=== PATIENT | female | born 1930 | race Caucasian/White ===

== ENCOUNTER 2016-04-29 18:07 | Inpatient (IN) ==
[2016-04-29] MEDS ORDERED: IOPAMIDOL 100 ML BOTTLE IJ ONE (18:08)
[2016-04-29] MEDS ORDERED: ONDANSETRON 4 MG/2 ML VIAL ONE (18:45)
[2016-04-29] MEDS ORDERED: ONDANSETRON 4 MG/2 ML VIAL IV ONE (18:50)
[2016-04-29] MEDS ORDERED: 0.9 % SODIUM CHLORIDE 1,000 ML IV ONE ×2 (18:50→20:50)
[2016-04-29] MEDS ORDERED: HYDROmorphone 2 MG/ML SYRINGE IV PRN (18:50)
--- NOTE | 2016-04-29 18:50 | Emergency Department Note ---
Abdominal Pain HPI - General Chief Complaint: Abdominal Pain Stated Complaint: indigestion, abd pain Time Seen by Provider: 04/29/16 18:47 Source: patient Mode of arrival: ambulatory Limitations: no limitations - History of Present Illness HPI Narrative: Patient started having abdominal pain today. 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 Perhaps less and at than usual. Bowel obstructions in the past. She has had nausea and vomiting MD Complaint: abdominal pain Onset (ago): hour(s) Consistency: constant Location: diffuse Severity: moderate Quality: cramping - Related Data Home Medications Medication Instructions Recorded Confirmed No Known Home Meds [No Known Home 04/29/16 04/29/16 Meds] Allergies Allergy/AdvReac Type Severity Reaction Status Date / Time No Known Drug Allergies Allergy Verified 04/29/16 18:13 Review of Systems Constitutional: Denies: fever, chills Eyes: Denies: eye pain ENT ED: Denies: ear pain Cardiovascular: Denies: chest pain Respiratory: Denies: cough Gastrointestinal: Reports: abdominal pain, nausea, vomiting. Denies: diarrhea, constipation, hematemesis, melena, hematochezia Genitourinary: Denies: urgency Musculoskeletal: Denies: back pain Integumentary: Denies: rash Neurological: Denies: headache Abdominal Pain PMH - Past Medical History Medical history: Reports: other (ulcerative colitis) Surgical history ED: Reports: colostomy (age 33 for ulcerative colitis) Physical Exam - General Limitations: no limitations General appearance: alert - Head Head exam: atraumatic - Eye Eye exam: Present: normal appearance - ENT ENT exam: normal exam - Neck Neck exam: Present: normal inspection - Chest Chest inspection: Present: normal inspection - Respiratory Respiratory exam: Present: normal lung sounds bilaterally - Cardiovascular Cardiovascular exam: Present: regular rate, normal rhythm, normal heart sounds - Abdominal Exam Abdominal exam: Present: soft, tenderness, normal bowel sounds. Absent: distention, guarding, rebound, rigidity - Neurological Exam Neurological exam: Present: alert - Psychiatric Psychiatric exam: Present: normal affect - Skin Skin exam: Present: warm, dry Course Vital Signs Temperature 97.2 F L 04/29/16 18:09 Pulse Rate 96 H 04/29/16 18:09 Respiratory Rate 16 04/29/16 18:09 Blood Pressure 142/63 04/29/16 18:09 Temperature 98.0 F 04/30/16 04:00 Pulse Rate 74 04/30/16 04:00 Respiratory Rate 18 04/30/16 04:00 Blood Pressure 129/63 04/30/16 04:00 Pulse Oximetry (%) 99 04/30/16 04:00 Abdominal Pain - Lab Data Lab results reviewed: Yes I reviewed the patient's lab results. Result diagrams: 04/29/16 18:50 04/29/16 18:50 Lab Results 04/29/16 04/29/16 Range/Units 18:50 18:50 WBC 10.3 (4.5-11.0) K/mcL RBC 4.73 (4.00-5.20) M/mcL Hgb 12.5 (12.0-15.0) g/dL Hct 38.3 (36.0-48.0) % MCV 80.9 (80.0-100.0) fL MCH 26.5 (26.0-34.0) pg MCHC 32.7 (31.0-36.0) g/dL RDW 16.4 H (11.5-14.5) % Plt Count 507 H (140-440) K/mcL MPV 6.8 L (7.4-10.4) fL Gran % 76.8 (38.0-78.0) % Lymph % (Auto) 15.3 L (15.5-49.0) % [place] % (Auto) 5.5 (1.0-9.0) % Eos % (Auto) 2.0 (0.0-7.0) % Baso % (Auto) 0.4 (0.0-2.0) % Gran # 7.9 (1.8-8.0) K/mcL Lymph # 1.6 (1.5-4.8) K/mcL [place] # 0.6 (0.1-0.9) K/mcL Eos # 0.2 (0.0-0.7) K/mcL Baso # 0 (0.0-0.3) K/mcL Sodium 134 (133-145) mmol/L Potassium 3.8 (3.3-5.1) mmol/L Chloride 96 (96-108) mmol/L Carbon Dioxide 23 (22-30) mmol/L Anion Gap 15.0 (8-16) BUN 9 (8-23) mg/dl Creatinine 0.8 (0.6-1.1) mg/dl GFR Calculation 68 Glucose 112 H (70-105) mg/dL Calcium 11.6 H (8.6-10.4) mg/dl Total Bilirubin 0.5 (0.0-1.0) mg/dL AST 19 (0-37) U/l ALT 10 (0-40) U/l Alkaline Phosphatase 98 (39-117) U/L Total Protein 8.0 (5.9-8.4) gm/dL Albumin 4.2 (3.2-5.2) gm/dL Globulin 3.8 H (2.2-3.7) gm/dL Albumin/Globulin Ratio 1.1 (1.0-2.3) - Radiology Data Radiology results reviewed: Yes I reviewed the patient's radiology results. ( plain film and CT were consistent with partial small bowel obstruction) Disposition Clinical Impression: Small bowel obstruction Disposition: Xfer As Outpt/Obs ([facility]) Condition: Good
[2016-04-29 19:05] LABS: Basophils # (Auto) 0 K/mcL (0.0-0.3); Basophils % (Auto) 0.4 % (0.0-2.0); Eosinophils # (Auto) 0.2 K/mcL (0.0-0.7); Granulocytes % (Auto) 76.8 % (38.0-78.0); Lymphocytes # (Auto) 1.6 K/mcL (1.5-4.8); Lymphocytes % (Auto) 15.3 % (15.5-49.0); Mean Cell Volume 80.9 fL (80.0-100.0); Mean Corpuscular HGB Conc 32.7 g/dL (31.0-36.0); Mean Corpuscular Hemoglobin 26.5 pg (26.0-34.0); Monocytes # (Auto) 0.6 K/mcL (0.1-0.9); Monocytes % (Auto) 5.5 % (1.0-9.0); Platelet Count 507 K/mcL (140-440); RBC 4.73 M/mcL (4.00-5.20); Red Cell Distribution Width 16.4 % (11.5-14.5)
[2016-04-29 19:26] LABS: ALT/SGPT 10 U/l (0-40); Albumin 4.2 gm/dL (3.2-5.2); Albumin/Globulin Ratio 1.1 (1.0-2.3); Alkaline Phosphatase 98 U/L (39-117); Blood Urea Nitrogen 9 mg/dl (8-23)
--- NOTE | 2016-04-29 19:31 | XRay Report ---
CLINICAL INFORMATION: Abdominal pain TECHNIQUE: Supine and upright abdomen COMPARISON: None. FINDINGS: Abnormal bowel gas pattern. There is small bowel gas with mild dilatation. There are scattered air-fluid levels. There is very little colonic gas. Appearance is consistent with mechanical small bowel obstruction. No pneumoperitoneum. No biliary or portal venous gas. No pneumatosis. No pathologic calcifications. IMPRESSION: 1. Abnormal bowel gas pattern. Mechanical small bowel obstruction is suspected. 2. No pneumoperitoneum. No biliary or portal venous gas. Interpreted and Authenticated by: Vel Mejia 04/29/16
--- NOTE | 2016-04-29 20:29 | Cat Scan Report ---
CLINICAL INFORMATION: Abdominal pain COMPARISON: None. TECHNIQUE: Axial images were obtained through the abdomen and pelvis. Sagittally and coronally reformatted images. 80 mL nonionic contrast material injected intravenously. Water was given as oral contrast FINDINGS: Stomach, duodenum, and small bowel are distended and fluid-filled. There is a right lower quadrant ileostomy. There is a small stomal hernia with localized partial mechanical small bowel obstruction. There is no bowel wall thickening. No extraluminal fluid. No pneumatosis. No evidence for ischemia. Lung bases are negative. No parenchymal infiltrate or mass. No pleural fluid. No pericardial fluid. Liver is negative. No focal intrahepatic abnormalities. No significant bile duct dilatation. Pancreas is negative. No pancreatitis. Spleen is negative. No splenomegaly. Adrenal glands are negative. Kidneys are negative. No hydronephrosis. There is been previous colectomy. The rectum remains in place. Uterus is present. No adnexal mass. No free pelvic fluid. No localized fluid collections. No retroperitoneal or mesenteric adenopathy. IMPRESSION: 1. Mechanical small bowel obstruction. This appears to be secondary to a stomal hernia. No evidence for bowel ischemia. 2. Previous colectomy. Interpreted and Authenticated by: Vel Mejia 04/29/16
[2016-04-29] MEDS ORDERED: ONDANSETRON 4 MG/2 ML VIAL IV PRN (20:52)
[2016-04-29] MEDS: 0.9 % SODIUM CHLORIDE 1,000 ML IV SCH (22:43)
[2016-04-30] MEDS: 0.9 % SODIUM CHLORIDE 1,000 ML IV SCH ×4 (04:15→21:30)
--- NOTE | 2016-04-30 09:18 | XRay Report ---
CLINICAL INFORMATION: Preoperative chest x-ray TECHNIQUE: Upright PA chest x-ray COMPARISON: 01/15/2011 FINDINGS: Mild blunting of left costophrenic angle. Small focal parenchymal density at the left costophrenic angle may be atelectasis or small focal inflammatory infiltrate. Lungs are otherwise negative. Right lung is negative. Heart size and vascularity are normal. [place] and mediastinum are negative. IMPRESSION: 1. Mild blunting of the left costophrenic angle and small focal pulmonary parenchymal density 2. Otherwise negative PA chest x-ray Interpreted and Authenticated by: Vel Mejia 04/30/16
--- NOTE | 2016-04-30 09:20 | XRay Report ---
CLINICAL INFORMATION: Bowel obstruction TECHNIQUE: AP supine and upright abdomen COMPARISON: Plain film examination dated 04/29/2016. CT scan dated 04/29/2016. FINDINGS: Interval change since previous plain film examination. There is increasing distention of small bowel, especially in the right side of the abdomen. There are associated air-fluid levels. No pneumoperitoneum. No biliary or portal venous gas. No pneumatosis. Comparison made consistent with mechanical small bowel obstruction. This is felt to be secondary to a stomal hernia on previous CT scan. IMPRESSION: 1. Findings remain consistent with mechanical small bowel obstruction. 2. Increasing small bowel distention. Interpreted and Authenticated by: Vel Mejia 04/30/16
[2016-04-30 09:50] LABS: Basophils # (Auto) 0 K/mcL (0.0-0.3); Basophils % (Auto) 0.1 % (0.0-2.0); Eosinophils # (Auto) 0.1 K/mcL (0.0-0.7); Eosinophils % (Auto) 0.7 % (0.0-7.0); Granulocytes % (Auto) 85.7 % (38.0-78.0); Lymphocytes # (Auto) 0.7 K/mcL (1.5-4.8); Lymphocytes % (Auto) 8.4 % (15.5-49.0); Mean Cell Volume 81.5 fL (80.0-100.0); Mean Corpuscular HGB Conc 32.5 g/dL (31.0-36.0); Mean Corpuscular Hemoglobin 26.5 pg (26.0-34.0); Monocytes # (Auto) 0.4 K/mcL (0.1-0.9); Monocytes % (Auto) 5.1 % (1.0-9.0); Platelet Count 448 K/mcL (140-440); RBC 4.27 M/mcL (4.00-5.20); Red Cell Distribution Width 16.7 % (11.5-14.5)
[2016-04-30 10:08] LABS: Magnesium 1.8 mg/dL (1.6-2.5)
[2016-04-30 10:13] LABS: Blood Urea Nitrogen 10 mg/dl (8-23)
[2016-04-30] MEDS: METOCLOPRAMIDE 10 MG/2 ML VIAL IV SCH ×2 (10:32→17:40)
[2016-04-30] MEDS ORDERED: PANTOPRAZOLE 40 MG VIAL IV SCH (17:00)
--- NOTE | 2016-04-30 17:10 | General Surg History&Physical ---
History of Present Illness Patient information: Note initiated : 04/30/16 at 5:05 pm Service Date, if different from initiated Date: [] Patient: Juana Jackson a 85 y/o F admitted on 04/29/16 for Indigestion, Abd Pain/Small Bowel Obstruction. Chief Complaint: [85 Y/O FEMALE WITH 4 DAY H/O ABDOMINAL DISTENTION AND INCREASING INDIGESTION. THIS OCCURRED AFTER EATING A LARGE VOLUME OF NUTS. SHE NOTED THAT HER ILEOSTOMY HAD STOPPED FUNCTIONING. SHE DEVELOPED SMOE CRAMPY ABDOMINAL PAIN WITH WORSENING NAUSEA. ABDOMINAL SERIES SUGGESTED INTESTINAL OBSTRUCTION. SHE HAD A C.T. OF THE ABDOMEN AND PELVIS THAT CONFIRMED PARTIAL OBSTRUCTION AT THE LEVEL OF HER ILEOSTOMY. SHE HAS HAD TWO PRIOR EPISODES IN THE REMOTE PAST THAT RESOLVED SPONTANEOUSLY.] SHE IS S/P TOTAL COLECTOMY WITH ILEOSTOMY FOR ULCERATIV COLITIS AT AGE 33. HPI: Ms. Jackson is a 85 year old female Review of Systems - Constitutional weight loss (20# OVER THE PAST YEAR) - Musculoskeletal arthralgias, back pain, joint swelling, myalgias Past History Past medical history: LOW BACK PAIN Past surgical history: TOTAL COLECTOMY Past family history: MOM--- AGE 85 STROKE DAD-- AGE 80 PANCREATIC CANCER BRO ALIVE AGE 85 WITH BLADDER CANCER Past social history: ; NEVER TOBACCO RARE WINE NEVER SUBSTANCE ABUSE Medications and Allergies Home Medications Medication Instructions Recorded Confirmed Type No Known Home Meds [No Known Home 04/29/16 04/29/16 History Meds] Allergies Allergy/AdvReac Type Severity Reaction Status Date / Time almond AdvReac Verified 04/30/16 07:20 egg AdvReac Verified 04/30/16 07:20 honey AdvReac Verified 04/30/16 07:20 Milk Containing Products AdvReac Verified 04/30/16 07:20 Exam Temp Pulse Resp BP Pulse Ox 97.8 F 74 20 117/54 100 04/30/16 11:53 04/30/16 04:00 04/30/16 11:53 04/30/16 11:53 04/30/16 11:53 - General physical appearance well developed, well nourished, no distress - Eyes PERRL, normal ocular movement - ENT normal pinna, normal nares, normal mucosa, no hearing loss, no congestion - Head Head exam IM: Present: atraumatic, normocephalic - Neck no masses, no bruits, trachea midline, no lymphadectomy, no venous distension - Cardiovascular Cardiovascular exam IM: Present: normal rate and rhythm, RRR, +S1, +S2, systolic murmur. Absent: JVD Intensity IM: 6 - Respiratory normal expansion, normal respiratory effort, clear to percussion, clear to auscultation - Abdomen Abdomen: Present: soft, non tender, bowel sounds, distended (MILDLY DISTENDED ; HYPERACTIVE BOWEL SOUNDS; STOMA IN RLQ ) Hernia: Present: none - Rectum Rectum: Present: no hemorrhoids, no tenderness, no bleeding - Integumentary Present: no rash, no growths, no abnormal pigmentation - Neurologic Present: normal coordination, normal sensation - Musculoskeletal Present: normal gait, normal posture - Psychiatric Present: oriented to time, oriented to person, oriented to place, speech is normal, memory intact Assessment and Plan (1) Small bowel obstruction SERIAL EXAMS; SERIAL ABDOMINAL X-RAYS REGLAN Q6H MAY DIGITAL EXAMINE STOMA IF SHE IS NOT COMPLETELY OPEN TOMORROW Status: Acute
[2016-04-30] MEDS ORDERED: 0.9 % SODIUM CHLORIDE 1,000 ML IV SCH (17:30)
[2016-04-30] MEDS ORDERED: ONDANSETRON 4 MG/2 ML VIAL IV PRN (20:26)
[2016-05-01] MEDS: METOCLOPRAMIDE 10 MG/2 ML VIAL IV SCH ×4 (00:31→17:56)
[2016-05-01] MEDS: 0.9 % SODIUM CHLORIDE 1,000 ML IV SCH ×5 (01:37→21:05)
[2016-05-01 06:42] LABS: Basophils # (Auto) 0 K/mcL (0.0-0.3); Basophils % (Auto) 0.3 % (0.0-2.0); Eosinophils # (Auto) 0.3 K/mcL (0.0-0.7); Eosinophils % (Auto) 4.8 % (0.0-7.0); Granulocytes % (Auto) 65.4 % (38.0-78.0); Lymphocytes % (Auto) 19.1 % (15.5-49.0); Mean Cell Volume 82.8 fL (80.0-100.0); Mean Corpuscular HGB Conc 32.4 g/dL (31.0-36.0); Mean Corpuscular Hemoglobin 26.8 pg (26.0-34.0); Monocytes # (Auto) 0.5 K/mcL (0.1-0.9); Monocytes % (Auto) 10.4 % (1.0-9.0); Platelet Count 348 K/mcL (140-440); RBC 3.64 M/mcL (4.00-5.20); Red Cell Distribution Width 16.8 % (11.5-14.5)
[2016-05-01 06:53] LABS: Blood Urea Nitrogen 10 mg/dl (8-23)
[2016-05-01] MEDS: PANTOPRAZOLE 40 MG VIAL IV SCH ×2 (07:29→17:56)
--- NOTE | 2016-05-01 07:37 | XRay Report ---
CLINICAL INFORMATION: History of mechanical small bowel obstruction. Follow-up. TECHNIQUE: AP supine and left lateral decubitus abdomen COMPARISON: Previous examination dated 04/30/2016 FINDINGS: Bowel gas pattern is markedly improved. There is small bowel gas without significant dilatation. No significant air-fluid levels on left lateral decubitus view. No pneumoperitoneum. No biliary or portal venous gas. No pneumatosis. IMPRESSION: Markedly improved bowel gas pattern Interpreted and Authenticated by: Vel Mejia 05/01/16
--- NOTE | 2016-05-01 13:22 | General Surgery Progress Note ---
Subjective Patient reports: feels better, pain is less, tolerating liquids well, flatus, bowel movement, afebrile Narrative: Note initiated : 05/01/16 at 1:18 pm Service Date, if different from initiated Date: [] Patient: Juana Jackson 85 y/o F admitted on 04/29/16 for Indigestion, Abd Pain/Small Bowel Obstruction. Chief Complaint: [patient feels much better. She has had many bowel movements and has had large volume of flatus. her abdominal pain has essentially resolved. She tolerated clear liquids and is now on a full liquid diet without any increase in symptoms. Her reflux symptoms have resolved. She no longer has nausea. All of her stoma output is liquid. Her morning x-rays shows significant reduction in small bel dilation though she does have some mild residual dilation in 2 loops] Objective Temp Pulse Resp BP Pulse Ox 97.6 F 65 14 105/58 98 05/01/16 12:00 05/01/16 12:00 05/01/16 12:00 05/01/16 12:00 05/01/16 12:00 - Additional Data Intake & Output - Last 24 hours: Intake & Output 04/29/16 04/30/16 05/01/16 05/02/16 05:59 05:59 05:59 05:59 Intake Total 2050 / 3050 1920 / 1920 1600 / 1600 Output Total 1400 / 1400 2400 / 2400 450 / 450 Balance 650 / 1650 -480 / -480 1150 / 1150 Weight 118 lb 118 lb - General physical appearance no distress, no pain - Eyes PERRL - ENT no congestion - Neck no venous distension - Respiratory clear to auscultation - Cardiovascular Cardiovascular exam: Present: normal rate and rhythm, RRR, +S1, +S2. Absent: JVD - Abdomen soft, non tender, bowel sounds, distended (minimal abdominal distention; good active bowel sounds;no tenderness to palpation;) - Integumentary no rash - Neurologic normal coordination, normal sensation - Musculoskeletal normal gait, normal posture - Psychiatric oriented to time, oriented to person, oriented to place, speech is normal, memory intact - Labs 05/01/16 04:25 05/01/16 04:25 Diabetes panel 05/01/16 Range/Units 04:25 Sodium 139 (133-145) mmol/L Potassium 3.4 (3.3-5.1) mmol/L Chloride 108 (96-108) mmol/L Carbon Dioxide 19 L (22-30) mmol/L BUN 10 (8-23) mg/dl Creatinine 0.6 (0.6-1.1) mg/dl Glucose 59 L (70-105) mg/dL Calcium 9.6 (8.6-10.4) mg/dl Calcium panel 05/01/16 Range/Units 04:25 Calcium 9.6 (8.6-10.4) mg/dl Pituitary panel 05/01/16 Range/Units 04:25 Sodium 139 (133-145) mmol/L Potassium 3.4 (3.3-5.1) mmol/L Chloride 108 (96-108) mmol/L Carbon Dioxide 19 L (22-30) mmol/L BUN 10 (8-23) mg/dl Creatinine 0.6 (0.6-1.1) mg/dl Glucose 59 L (70-105) mg/dL Calcium 9.6 (8.6-10.4) mg/dl Adrenal panel 05/01/16 Range/Units 04:25 Sodium 139 (133-145) mmol/L Potassium 3.4 (3.3-5.1) mmol/L Chloride 108 (96-108) mmol/L Carbon Dioxide 19 L (22-30) mmol/L BUN 10 (8-23) mg/dl Creatinine 0.6 (0.6-1.1) mg/dl Glucose 59 L (70-105) mg/dL Calcium 9.6 (8.6-10.4) mg/dl Medical - PN: A/P - Time Spent With Patient Total time spent is greater than 50% in coordination of care (as documented) at patient's floor/unit and/or counseling patient: (1) Small bowel obstruction Status: Acute Assessment and plan: diet is advanced to full liquids IV fluids saline locked Will get follow-up abdominal series in the morning Current Visit: Yes
[2016-05-02] MEDS: METOCLOPRAMIDE 10 MG/2 ML VIAL IV SCH ×3 (00:35→12:01)
[2016-05-02] MEDS: 0.9 % SODIUM CHLORIDE 1,000 ML IV SCH ×2 (02:02→08:12)
[2016-05-02 06:00] LABS: Basophils # (Auto) 0 K/mcL (0.0-0.3); Basophils % (Auto) 0.5 % (0.0-2.0); Eosinophils # (Auto) 0.2 K/mcL (0.0-0.7); Eosinophils % (Auto) 3.3 % (0.0-7.0); Granulocytes % (Auto) 67.7 % (38.0-78.0); Lymphocytes % (Auto) 17.8 % (15.5-49.0); Mean Cell Volume 81.8 fL (80.0-100.0); Mean Corpuscular HGB Conc 32.2 g/dL (31.0-36.0); Mean Corpuscular Hemoglobin 26.3 pg (26.0-34.0); Monocytes # (Auto) 0.6 K/mcL (0.1-0.9); Monocytes % (Auto) 10.7 % (1.0-9.0); Platelet Count 326 K/mcL (140-440)
[2016-05-02 06:47] LABS: Blood Urea Nitrogen 7 mg/dl (8-23)
[2016-05-02] MEDS: PANTOPRAZOLE 40 MG VIAL IV SCH (08:11)
--- NOTE | 2016-05-02 11:50 | Discharge Summary ---
Providers - Providers Patient information: Note initiated : 05/02/16 at 11:47 am Service Date, if different from initiated Date: [] Patient: Juana Jackson 85 y/o F admitted on 04/29/16 for Indigestion, Abd Pain/Small Bowel Obstruction. Chief Complaint: [] Date of admission: 04/29/16 Discharge date: 05/02/16 Attending physician: Nohemy Velazquez Hospitalization Hospital course: 85-year-old female with history of ulcerative colitis status post total colectomy over 50 years ago with end ileostomy. Patient presents witha 2 day history of crampy abdominal painwith nausea and decreased output via her stoma. Plain films suggested small bowel obstruction and CT scan showeda parastomal hernia with a loop of small bowel in the hernia with obstruction The patient gives a history of eating a large volume of walnuts the day before this started. She was admitted and kept nothing by mouth. The plan was to do a small bowel follow-through however she started having output of the granular nuts through her stoma followed by large-volume solid gas. Her diet has been advanced from liquids to full liquids and she has tolerated this well The x- ray from yesterday showed near complete resolution of small bowel distention. The patient has been stable overnight and is stable for discharge. Discharge diagnosis: small bowel obstruction Secondary discharge diagnosis: parastomal hernia Ileostomy status History of ulcerative colitis, remote Reason for admission: small bowel obstruction Procedures: none Pertinent studies/significant findings: CT scan showed small bowel obstruction at the ileostomy and a parastomal hernia Complications: none Exam Temp Pulse Resp BP Pulse Ox 98.1 F 64 16 113/62 95 05/02/16 11:22 05/02/16 11:29 05/02/16 11:22 05/02/16 11:22 05/02/16 11:22 - General physical appearance well developed, well nourished, no distress - Eyes PERRL, normal ocular movement - ENT normal pinna, normal nares, normal mucosa, no hearing loss, no congestion - Head Head exam IM: Present: atraumatic, normocephalic - Neck no masses, no bruits, trachea midline, no lymphadectomy, no venous distension - Cardiovascular Cardiovascular exam IM: Present: normal rate and rhythm - Respiratory normal expansion, normal respiratory effort, clear to percussion, clear to auscultation - Abdomen Abdomen: Present: soft (soft nontender normal active bowel sounds no distention and no mass), non tender, bowel sounds Hernia: Present: none - Integumentary Present: no rash, no growths, no abnormal pigmentation - Neurologic Present: normal coordination, normal sensation - Musculoskeletal Present: normal gait, normal posture - Psychiatric Present: oriented to time, oriented to person, oriented to place, speech is normal, memory intact Discharge Plan - Patient/Caregiver Discharge Instructions Activity: increase activity as tolerated Diet: Regular Diet Prescriptions: Potassium Chloride [Kdur] 20 meq PO BIDCC #10 tablet - Follow up Plan Disposition: Home, Self-Care Prognosis: Good Rehab Potential: Good I certify that the patient requires SNF services.: No Overall status at discharge: patient is back to baseline Pending Studies Resuscitation Status Full Code Diet Full Liquid Diet Start FriMay 01 Breakfast Sodium Chloride (Sodium Chloride 0.9%) 1,000 mls @ 125 mls/hr IV .Q8H [facility] Last Admin: 05/02/16 08:12 Dose: Not Given Admin: 05/02/16 02:02 Dose: 125 mls/hr Admin: 05/01/16 21:05 Dose: Not Given Infusion: 05/01/16 17:38 Dose: 125 mls/hr Admin: 05/01/16 11:41 Dose: Not Given Admin: 05/01/16 09:38 Dose: 125 mls/hr Infusion: 05/01/16 09:37 Dose: 125 mls/hr Admin: 05/01/16 07:28 Dose: Not Given Admin: 05/01/16 01:37 Dose: 125 mls/hr Admin: 04/30/16 21:30 Dose: Not Given Metoclopramide HCl (Reglan) 10 mg IV Q6 [facility] Last Admin: 05/02/16 06:05 Dose: 10 mg Admin: 05/02/16 00:35 Dose: 10 mg Admin: 05/01/16 17:56 Dose: 10 mg Admin: 05/01/16 13:24 Dose: 10 mg Admin: 05/01/16 06:02 Dose: 10 mg Admin: 05/01/16 00:31 Dose: 10 mg Pantoprazole Sodium (Protonix) 40 mg IV BIDAC [facility] Last Admin: 05/02/16 08:11 Dose: 40 mg Admin: 05/01/16 17:56 Dose: 40 mg Admin: 05/01/16 07:29 Dose: 40 mg Shift Summary 05/02/16 03:59 Shift Summary by Miladis Finn Slept off & on tonight. Gets up w/SBA (with IV pole) to BR to void & empty her iliostomy. It's still putting out liquid stool with no solids. She does feel better and tolerated her full liquid diet well. She is hoping her test results today are favorable so she can go home. Initialized on 05/02/16 03:59 - END OF NOTE
== END 2016-05-02 13:55 | disposition home or self-care (01) | DRG 389 ==
LOC: ED 18:07 → INTOOBSV 21:32 → ICU 21:32 → OBSVTOIN 21:32 → ICU 21:39 → MEDSUR 04-30 19:37
PROVIDERS: ADMIT Family Medicine Adult Medicine; ATTEND Family Medicine Adult Medicine

== ENCOUNTER 2021-10-01 17:43 | Observation (INO) ==
[2021-10-01 17:56] LABS: POC Calcium, Ionized 1.47 (1.16-1.32); POC Creatinine 0.9 (0.6-1.2)
--- NOTE | 2021-10-01 18:13 | Cat Scan Report ---
INDICATION: Neuro Deficit/acute stroke COMPARISON: Previous CT scan dated 07/21/2020. Previous CTA dated 02/11/2020 TECHNIQUE: Axial noncontrast-enhanced images through the brain. Sagittally and coronally reformatted images. FINDINGS: Cerebral hemispheres:No intra-axial hemorrhage. No well-defined focal attenuation abnormality or localized mass effect. No midline shift. No acute intra-axial abnormality. There is cerebral atrophy. There is periventricular low attenuation consistent with small vessel ischemic change. No significant interval change. Brainstem and cerebellum:No intra-axial abnormality Extra-axial:No acute hemorrhage. No subdural or epidural hematoma. No subarachnoid hemorrhage. Basilar cisterns are normal Calvarial:No calvarial fracture. No lytic lesion Temporal bones are negative. No destructive lesions Soft tissue, orbits, sinuses:Orbits and visualized facial soft tissues and paranasal sinuses are negative IMPRESSION: 1. No acute intracranial hemorrhage. No acute abnormality 2. Cerebral atrophy and white matter abnormality consistent with small vessel ischemic change 3. No significant interval change since 07/21/2020 The exam was performed using radiation dose optimization techniques including, but not limited to, automated exposure control, adjustment of the mA and/or kV according to patient size and use of iterative reconstruction technique. Interpreted and Authenticated by: Vel Mejia 10/01/21
--- NOTE | 2021-10-01 18:20 | Emergency Department Note ---
Neuro HPI General Chief Complaint: Stroke Symptoms Stated Complaint: stroke Time Seen by Provider: 10/01/21 17:47 Source: patient Mode of arrival: ambulatory Limitations: no limitations History of Present Illness HPI Narrative: Narrative: Patient presents ED with complaints of slurred speech that occurred 20 minutes prior to arrival. Patient states that she went home to get ready for a September republican when she did not feel right. She states that she could not make sense of her thoughts and her states that she was slurring her speech. She denies extremity weakness, extremity numbness, headaches, vision changes, cardiac chest pain, heart palpitations, nausea, vomiting, fever, chills, recent falls or head trauma. She reports history of TIAs but denies any history of stroke. She does have history of hypertension as well. She denies any history of IA or cardiac arrhythmia. She denies any [id number] medication. She reports she came directly here once the symptoms began. She states now she felt she was back to normal and she states that the total amount of time that she had the symptoms was 20 minutes. Patient denies any other alleviating or aggravating factor. Related Data Home Medications Medication Instructions Recorded Confirmed No Known Home Meds 09/04/21 09/26/21 Allergies Allergy/AdvReac Type Severity Reaction Status Date / Time No Known Drug Allergies Allergy Verified 10/01/21 17:46 Review of Systems ROS ROS Narrative: Narrative: All systems ED: reviewed and negative except as stated. [facility] Narrative Patient History Narrative: Narrative: Medical/Surgical/Family History All Active Problems (Updated 10/01/21 @ 18:51 by Yoel Flowers DO) Brain TIA (Acute) Ileostomy status (Chronic) Parastomal hernia without obstruction or gangrene (Chronic) Zoster without complications (Chronic) Hx of chronic ulcerative colitis (Chronic) Chest heaviness (Chronic) Left lower quadrant pain (Chronic) Nontraumatic shoulder pain (Chronic) Change in vision (Chronic) Mastoiditis (Chronic) Dehydration (Chronic) Unsteady gait (Chronic) Hypercalcemia (Chronic) Hypertension (Chronic) TIA (transient ischemic attack) (Chronic) Tendinitis of finger of left hand (Chronic) Acute maculopapular rash (Chronic) Rash (Chronic) Shingles (Chronic) Acute pancreatitis (Chronic) Abdominal pain, epigastric (Chronic) Acute sinusitis (Chronic) Acute bronchitis (Chronic) Small bowel obstruction (Chronic) Medical History Abdominal pain, epigastric Acute bronchitis Acute maculopapular rash Acute pancreatitis Acute sinusitis Change in vision Chest heaviness Dehydration Hx of chronic ulcerative colitis Hypercalcemia Hypertension Left lower quadrant pain the problems are probably related to adhesive disease and the outcome is nonpredictable. She does not need to have any further diagnostic studies at this time. Mastoiditis Nontraumatic shoulder pain Parastomal hernia without obstruction or gangrene Rash Shingles Small bowel obstruction Tendinitis of finger of left hand TIA (transient ischemic attack) Unsteady gait Zoster without complications Surgical History History of colectomy (~1963) Ileostomy status Family History Mother Stroke Father Pancreatic cancer Lymphoma Brother Bladder cancer Social History Smoking Status: Never smoker Alcohol Intake Frequency: holiday/special occasion only Substance Use: does not use Exam Narrative Narrative: Narrative: General Limitations: no limitations General appearance: Present alert Head Head: Present atraumatic and normocephalic Eye Eye: Present PERRL and EOMI ENT ENT: Present normal exam, normal oropharynx and mucous membranes moist Neck Neck: Present normal inspection and full ROM Chest Chest: Present normal inspection; Absent tenderness Respiratory Respiratory: Present normal lung sounds bilaterally; Absent respiratory distress Cardiovascular Cardiovascular: Present regular rate and normal rhythm Adbominal Abdominal: Present soft and normal bowel sounds; Absent tenderness Extremities Extremities: Present normal inspection and full ROM Neurological Neurological: Present oriented X3, CN II-XII intact, normal gait and other (NIHSS = 0) Expanded Neurological Patient oriented to: Present person, place and time Speech: Present fluid speech CEREBELLAR FUNCTION: normal gait Motor strength - LUE: 5/5 Motor strength - RUE: 5/5 Motor strength - LLE: 5/5 Motor strength - RLE: 5/5 Coma Scale Eye Opening: Spontaneous Coma Scale Motor Response: Obeys Commands Coma Scale Verbal Response: Oriented Coma Scale Total: 15 Psychiatric Psychiatric: Present normal affect and normal mood Skin Skin: Present warm (WNL), intact and normal color Course Course Course Narrative: Patient was evaluated for slurred speech and difficulty with word finding. When patient arrived she was asymptomatic and back at her baseline. Labs were obtained are unremarkable. EKG was obtained and was unremarkable when compared to previous. Telemetry neurology was consulted and Dr. Lr recommends the patient be admitted to the hospital for observation. She requested that patient be given an additional 162 mg of aspirin. She also recommended patient be given Plavix 300 mg p.o. now along with Lipitor 80 mg p.o. now. She recommends over the next 21 days patient be started on a baby aspirin, Plavix 75 mg p.o. daily and Lipitor 80 mg p.o. daily. Case was discussed with hospitalist who is graciously excepted patient to be admitted. Plan was discussed with the patient who was in agreement with plan. Consultations Consultation #1: Case discussed with Dr. Lr, and telemetry neurologist, recommends that patient be monitored for 24 hours. She also request that patient be given aspirin 162 mg now as well as Plavix 300 mg now and Lipitor 80 mg now. She requested patient be started on 21-day of baby aspirin 81 mg plus Plavix 75 mg and Lipitor 80 mg. She recommends the patient have echocardiogram if echocardiogram cannot be obtained patient should have cardiac monitoring in the outpatient setting. Patient has no deficits and for 24 hours she may be discharged home. Time: 18:00 Consultation #2: Case discussed with hospitalist who has agreed to admit the patient Time: 18:32 Vital Signs Vital signs: Vital Signs Temperature 97.4 F 10/01/21 17:44 Pulse Rate 99 H 10/01/21 17:44 Respiratory Rate 16 10/01/21 17:44 Blood Pressure 195/121 10/01/21 17:44 Pulse Oximetry (%) 95 10/01/21 17:44 Temperature 97.4 F 10/01/21 17:44 Pulse Rate 66 10/01/21 18:31 Respiratory Rate 19 10/01/21 18:31 Blood Pressure 178/68 10/01/21 18:31 Pulse Oximetry (%) 99 10/01/21 18:31 MDM MDM Narrative Medical decision making narrative: Narrative: Differential Diagnosis Differential Diagnosis: TIA, stroke Medical Records Medical records reviewed: Yes I reviewed the patient's medical records. Lab Data Lab results reviewed: Yes I reviewed the patient's lab results. Result diagrams: 10/01/21 17:45 10/01/21 17:45 Labs: Lab Results 10/01/21 10/01/21 Range/Units 17:45 17:53 WBC 6.6 (4.5-11.0) K/mcL RBC 4.58 (3.59-5.38) M/mcL Hgb 13.9 (11.2-15.7) g/dL Hct 41.9 (34.1-44.9) % POC Hct 43.0 (36-48) MCV 91.5 (80.0-100.0) fL MCH 30.3 (26.0-34.0) pg MCHC 33.2 (31.0-36.0) g/dL RDW 13.2 (11.5-14.5) % Plt Count 278 (140-440) K/mcL MPV 9.0 (7.4-10.4) fL Immature Gran % (Auto) 0.3 (0.0-0.5) % Neut % (Auto) 52.0 (38.0-78.0) % Lymph % (Auto) 32.4 (15.5-49.0) % [place] % (Auto) 10.4 (1.0-12.0) % Eos % (Auto) 4.1 (0.0-7.0) % Baso % (Auto) 0.8 (0.0-2.0) % Lymph # (Auto) 2.15 (1.50-4.80) K/mcL [place] # (Auto) 0.69 (0.10-0.90) K/mcL Eos # (Auto) 0.27 (0.00-0.70) K/mcL Baso # (Auto) 0.05 (0.00-0.30) K/mcL Immature Gran # 0.02 (0.00-0.05) K/mcl Absolute Neutrophils 3.48 (1.80-8.00) K/mcL POC Sodium 139 (133-145) POC Potassium 4.0 (3.3-5.1) POC Chloride 105 (96-108) POC Total CO2 24.0 (22-30) POC BUN 14 (6-20) POC Creatinine 0.9 (0.6-1.2) POC Glucose 102 (70-105) POC WB Ioniz Calcium 1.47 H (1.16-1.32) Radiology Data Radiology results reviewed: Yes I reviewed the patient's radiology results. Radiology results narrative: CT of the head obtained with image reviewed myself, agree with radiologist report n EKG Data EKG #1: EKG attestation: Yes I reviewed and interpreted this EKG. EKG shows normal: sinus rhythm Rate: normal Rhythm: NSR [place]/QRS: normal Heart block present: None ST segment elevation in: None ST segment depression in: None QRS morphology: Present normal When compared to previous EKG there are: no significant changes Interpretation: no acute changes Core Measures AMI Core Measures Followed: Yes Discharge Plan Patient/Caregiver Discharge Instructions Pt seen by ROLL EXAMINER/PA only: No Clinical Impression: Brain TIA Patient Disposition: Xfer As Outpt/Obs ([facility]) Condition: Good Follow up with: Edelmira Martinez DO [Primary Care Provider] - Prescriptions: No Action No Known Home Meds 0RF
[2021-10-01] MEDS ORDERED: ASPIRIN 81 MG TAB.CHEW CHEWED ONE (18:24)
[2021-10-01] MEDS ORDERED: ATORVASTATIN 40 MG TABLET PO ONE (18:24)
[2021-10-01] MEDS ORDERED: CLOPIDOGREL 300 MG TABLET PO ONE (18:24)
[2021-10-01 18:36] LABS: Basophils # (Auto) 0.05 K/mcL (0.00-0.30); Basophils % (Auto) 0.8 % (0.0-2.0); Eosinophils # (Auto) 0.27 K/mcL (0.00-0.70); Eosinophils % (Auto) 4.1 % (0.0-7.0); Hematocrit 41.9 % (34.1-44.9); Hemoglobin 13.9 g/dL (11.2-15.7); Lymphocytes # (Auto) 2.15 K/mcL (1.50-4.80); Lymphocytes % (Auto) 32.4 % (15.5-49.0); Mean Cell Volume 91.5 fL (80.0-100.0); Mean Corpuscular HGB Conc 33.2 g/dL (31.0-36.0); Monocytes # (Auto) 0.69 K/mcL (0.10-0.90); Monocytes % (Auto) 10.4 % (1.0-12.0); Platelet Count 278 K/mcL (140-440); RBC 4.58 M/mcL (3.59-5.38); Red Cell Distribution Width 13.2 % (11.5-14.5); WBC 6.6 K/mcL (4.5-11.0)
[2021-10-01 18:49] LABS: INR 0.9 (0.9-1.1); Partial Thromboplastin Time 27.3 sec (20.0-37.0); Prothrombin Time 12.9 sec (11.9-14.5)
[2021-10-01 18:58] LABS: ALT/SGPT 14 U/L (<40); AST/SGOT 18 U/L (<32); Albumin 4.1 gm/dL (3.2-5.2); Albumin/Globulin Ratio 1.5 (1.0-2.3); Alkaline Phosphatase 72 U/L (39-117); Bilirubin,Total 0.5 mg/dL (0.1-1.0); Blood Urea Nitrogen 11 mg/dL (8-23); Calcium 10.9 mg/dL (8.6-10.4); Carbon Dioxide 23 mmol/L (22-30); Chloride 101 mmol/L (96-108); Globulin 2.7 gm/dL (2.2-3.7); Glomerular Filtration Rate 65; Glucose 102 mg/dL (70-105)
[2021-10-01 19:08] LABS: Appearance,Urine CLEAR (Clear); Bilirubin,Urine Negative (Negative); Color,Urine COLORLESS; Culture Indicated,Urine No; Glucose,Urine (UA) Negative (Negative); Ketones,Urine Negative (Negative); Leukocyte Esterase,Urine Negative /uL (Negative); Nitrate,Urine Negative (Negative); Protein,Urine Negative (Negative); Specific Gravity,Urine 1.001 (1.000-1.035); Urine Blood Negative (Negative); Urobilinogen,Urine Negative
--- NOTE | 2021-10-01 19:53 | Internal Med History&Physical ---
HPI History of Present Illness Patient information: Note initiated : 10/01/21 at 7:38 pm Service Date, if different from initiated Date: [] Patient: Juana Jackson a 89 y/o F admitted on for stroke. Chief Complaint: [] History of present illness: Ms. Jackson is a 89 year old F Presents the ED with confusion and slurred speech and word finding difficulty with onset at 1730. Patient has a history of TIA. Patient denied any extremity weakness or numbness headache or vision changes. In the ED her symptoms completely resolved and total duration of symptoms was 20 minutes. Blood pressure was elevated 195/125 in the ED. Patient says her blood pressure typically runs systolic of 125-140 at home and seems only run high during these episodes. Patient takes a baby aspirin and fish oil at home but no other medications. CT head showed no acute pathology, did show cerebral atrophy and small vessel ischemic changes. Case discussed with stroke neurologist Dr. Lr who recommended: She recommends over the next 21 days patient be started on a baby aspirin, Plavix 75 mg p.o. daily and Lipitor 80 mg p.o. daily. Patient also noted to be mildly hypercalcemic and she does admit to taking vitamin D supplement EKG in sinus Review of Systems: Pertinent positives as above. Denies headache/fever/chills/nausea/vomiting/chest or abdominal pain/cough/dyspnea/diarrhea. Remaining 10 point review of system reviewed negative PFSH PFSH All Active Problems (Updated 10/01/21 @ 18:51 by Yoel Flowers DO) Brain TIA (Acute) Ileostomy status (Chronic) Parastomal hernia without obstruction or gangrene (Chronic) Zoster without complications (Chronic) Hx of chronic ulcerative colitis (Chronic) Chest heaviness (Chronic) Left lower quadrant pain (Chronic) Nontraumatic shoulder pain (Chronic) Change in vision (Chronic) Mastoiditis (Chronic) Dehydration (Chronic) Unsteady gait (Chronic) Hypercalcemia (Chronic) Hypertension (Chronic) TIA (transient ischemic attack) (Chronic) Tendinitis of finger of left hand (Chronic) Acute maculopapular rash (Chronic) Rash (Chronic) Shingles (Chronic) Acute pancreatitis (Chronic) Abdominal pain, epigastric (Chronic) Acute sinusitis (Chronic) Acute bronchitis (Chronic) Small bowel obstruction (Chronic) Medical History Abdominal pain, epigastric Acute bronchitis Acute maculopapular rash Acute pancreatitis Acute sinusitis Change in vision Chest heaviness Dehydration Hx of chronic ulcerative colitis Hypercalcemia Hypertension Left lower quadrant pain the problems are probably related to adhesive disease and the outcome is nonpredictable. She does not need to have any further diagnostic studies at this time. Mastoiditis Nontraumatic shoulder pain Parastomal hernia without obstruction or gangrene Rash Shingles Small bowel obstruction Tendinitis of finger of left hand TIA (transient ischemic attack) Unsteady gait Zoster without complications Surgical History History of colectomy (~1963) Ileostomy status Family History Mother Stroke Father Pancreatic cancer Lymphoma Brother Bladder cancer Social History (Updated 09/26/21 @ 09:54 by Hesham Miller) household members: spouse marital status: occupational status: retired smoking status: Never smoker alcohol intake frequency: holiday/special occasion only substance use type: does not use MEDS/ALLERGIES Home Medications and Allergies Home Medications Medication Instructions Recorded Confirmed Type No Known Home Meds 09/04/21 09/26/21 History Allergies Allergy/AdvReac Type Severity Reaction Status Date / Time No Known Drug Allergies Allergy Verified 10/01/21 17:46 EXAM Constitutional Vitals: Temp Pulse Resp BP Pulse Ox 97.4 F 73 17 181/72 98 10/01/21 17:44 10/01/21 19:01 10/01/21 19:01 10/01/21 19:01 10/01/21 19:01 Exam: General: Alert, Awake, No acute Distress Eyes/N/T: EOMI, PERRL, dryMM Head/Neck: neck supple, normocephalic atraumatic CV: Regular with occasional ectopic beat, No murmurs, normal s1/s2 Pulm: Clear b/l, no wheezing/rhonchi/rales Abd: soft, nontender, +BS x4 Ext: no clubbing/cyanosis/edema Neuro: Alert, no focal deficits, moves all extremities, CN 2-12 grossly intact, symmetrical strength b/l upper/lower, sensations intact b/l upper/lower Skin: warm/dry DATA Data Completed and Pending Labs: Labs from last 24 hours 10/01/21 10/01/21 10/01/21 18:35 17:53 17:45 WBC RBC Hgb Hct POC Hct 43.0 MCV MCH MCHC RDW Plt Count MPV Immature Gran % (Auto) Neut % (Auto) Lymph % (Auto) [place] % (Auto) Eos % (Auto) Baso % (Auto) Lymph # (Auto) [place] # (Auto) Eos # (Auto) Baso # (Auto) Immature Gran # Absolute Neutrophils PT INR APTT POC Sodium 139 Sodium POC Potassium 4.0 Potassium POC Chloride 105 Chloride Carbon Dioxide POC Total CO2 24.0 Anion Gap POC BUN 14 BUN Creatinine POC Creatinine 0.9 GFR Calculation Glucose POC Glucose 102 Calcium POC WB Ioniz Calcium 1.47 H Total Bilirubin AST ALT Alkaline Phosphatase Troponin T < 0.01 Total Protein Albumin Globulin Albumin/Globulin Ratio Urine Color Colorless Urine Appearance Clear Urine pH 8.0 Ur Specific [place] 1.001 Urine Protein Negative Urine Glucose (UA) Negative Urine Ketones Negative Urine Occult Blood Negative Urine Nitrate Negative Urine Bilirubin Negative Urine Urobilinogen Negative Ur Leukocyte Esterase Negative Ur Culture Indicated? No 10/01/21 10/01/21 10/01/21 17:45 17:45 17:45 WBC 6.6 RBC 4.58 Hgb 13.9 Hct 41.9 POC Hct MCV 91.5 MCH 30.3 MCHC 33.2 RDW 13.2 Plt Count 278 MPV 9.0 Immature Gran % (Auto) 0.3 Neut % (Auto) 52.0 Lymph % (Auto) 32.4 [place] % (Auto) 10.4 Eos % (Auto) 4.1 Baso % (Auto) 0.8 Lymph # (Auto) 2.15 [place] # (Auto) 0.69 Eos # (Auto) 0.27 Baso # (Auto) 0.05 Immature Gran # 0.02 Absolute Neutrophils 3.48 PT 12.9 INR 0.9 APTT 27.3 POC Sodium Sodium 136 POC Potassium Potassium 4.0 POC Chloride Chloride 101 Carbon Dioxide 23 POC Total CO2 Anion Gap 12.0 POC BUN BUN 11 Creatinine 0.8 POC Creatinine GFR Calculation 65 Glucose 102 POC Glucose Calcium 10.9 H POC WB Ioniz Calcium Total Bilirubin 0.5 AST 18 ALT 14 Alkaline Phosphatase 72 Troponin T Total Protein 6.8 Albumin 4.1 Globulin 2.7 Albumin/Globulin Ratio 1.5 Urine Color Urine Appearance Urine pH Ur Specific [place] Urine Protein Urine Glucose (UA) Urine Ketones Urine Occult Blood Urine Nitrate Urine Bilirubin Urine Urobilinogen Ur Leukocyte Esterase Ur Culture Indicated? A/P Narrative A/P Narrative: A: *TIA (slurring/expressive aphasia): -ABCD=4 *HTN: pt states normally it SBP runs 125-140 at home *h/o ulcerative colitis with ileostomy: *Hypercalcemia: P: -per neurologist >over next 21 days pt to be on ASA 81mg, Plavix 75mg, Lipitor 80mg daily -since pt already on ASA, after 21-days will continue plavix and d/c ASA. -echo, carotid u/s pending -will check MRI -lipid panel -neurochecks -monitor BP, permissive HTN o/n -check iPTH and Vit D -hold home vit D supp -ppx: lovenox Time Spent With Patient Time: Total time spent is greater than 50% in coordination of care (as documented) at patient's floor/unit and/or counseling patient: Total time spent with greater than 50% in coordination of care (as documented) at patient's floor/unit and/or counseling patient:: 50 - 70 minutes QUALITY Stroke Symptom Onset Unknown: No
[2021-10-01] MEDS ORDERED: LABETALOL 5 MG/ML ML IV PRN (21:03)
[2021-10-01] MEDS ORDERED: ONDANSETRON 4 MG/2 ML VIAL IV PRN (21:03)
[2021-10-01] MEDS ORDERED: ACETAMINOPHEN 325 MG TABLET PO PRN (21:03)
[2021-10-01] MEDS ORDERED: POLYETHYLENE GLYCOL 3350 17 GM PACKET PO PRN (21:03)
[2021-10-01] MEDS ORDERED: SENNOSIDES 1 TABLET PO PRN (21:03)
[2021-10-01] MEDS ORDERED: 0.9 % SODIUM CHLORIDE 1,000 ML IV SCH (21:03)
[2021-10-01] MEDS ORDERED: POTASSIUM CHLORIDE 40 MEQ in DEXTROSE 5% IN WATER 500 ML IV PRN (21:03)
[2021-10-01] MEDS ORDERED: POTASSIUM CHLORIDE 20 MEQ TABLET PO PRN ×2 (21:03)
[2021-10-01] MEDS ORDERED: IPRATROPIUM/ALBUTEROL 3 ML AMPUL.NEB NEB PRN (21:03)
[2021-10-01] MEDS ORDERED: MAGNESIUM SULFATE 2 GM/50 ML BAG IV PRN (21:03)
[2021-10-01 21:40] LABS: Parathyroid Hormone Intact-SO 80.4 pg/mL (15.0-65.0)
[2021-10-01 21:45] LABS: HDL Cholesterol 105 mg/dL (>40); LDL Cholesterol,Calculated 175 mg/dL (<100); Non-HDL Cholesterol 207 mg/dL (<130); Triglycerides 165 mg/dL (<150)
[2021-10-01 21:55] LABS: Vitamin D 25 Hydroxy-SO 99.51 ng/mL (>30.00)
--- NOTE | 2021-10-01 22:06 | Discharge Summary ---
Discharge Provider Provider IMPORTANT FOLLOW-UP INFORMATION FOR PCP: -per neurologist >over next 21 days pt to be on ASA 81mg, Plavix 75mg, Lipitor 80mg daily -since pt already on ASA, after 21-days will continue plavix and d/c ASA. -started on norvasc 2.5mg daily, pt to monitor BP at home twice daily and bring log to PCP -f/u with PCP for mild primary hyperparathyroidism. pt likely has mild hyperparathyroidism. Patient information: Note initiated : 10/01/21 at 10:04 pm Service Date, if different from initiated Date: [] Patient: Juana Jackson 89 y/o F admitted on 10/01/21 for stroke. Chief Complaint: [] Date of admission: 10/01/21 20:54 Discharge date: 10/02/21 Primary care physician: Edelmira Martinez DO Consults: 10/01/21 Consult to Physician [CONS] Stat Comment: Consulting Provider: Antolin Guerrero Reason For Exam: Physician to Consult 10/01/21 17:51 Consult to Physician [CONS] Stat Comment: Consulting Provider: Cherry Carty Reason For Exam: Physician to Consult COURSE Hospital Course Hospital course: History of present illness: Ms. Jackson is a 89 year old F Presents the ED with confusion and slurred speech and word finding difficulty with onset at 1730. Patient has a history of TIA. Patient denied any extremity weakness or numbness headache or vision changes. In the ED her symptoms completely resolved and total duration of symptoms was 20 minutes. Blood pressure was elevated 195/125 in the ED. Patient says her blood pressure typically runs systolic of 125-140 at home and seems only run high during these episodes. Patient takes a baby aspirin and fish oil at home but no other medications. CT head showed no acute pathology, did show cerebral atrophy and small vessel ischemic changes. Case discussed with stroke neurologist Dr. Lr who recommended: She recommends over the next 21 days patient be started on a baby aspirin, Plavix 75 mg p.o. daily and Lipitor 80 mg p.o. daily. Patient also noted to be mildly hypercalcemic and she does admit to taking vitamin D supplement EKG in sinus 7/5 Overnight event or new complaints. Awaiting echocardiogram and carotid ultrasound and brain MRI. Patient doing well. No deficits. Blood pressure has continued to be elevated and will start low-dose Norvasc. A: *TIA (slurring/expressive aphasia): -ABCD=4 *HTN: elevated *h/o ulcerative colitis with ileostomy: *Hypercalcemia with likleymild Primary hyperparathyroidism: elevated iPTH *HLD: P: -per neurologist >over next 21 days pt to be on ASA 81mg, Plavix 75mg, Lipitor 80mg daily -since pt already on ASA, after 21-days will continue plavix and d/c ASA. -start low dose norvasc, pt to monitor at home -f/u with PCP for mild primary hyperparathyroidism. Discharge diagnosis: TIA hypertension hypercalcemia with likely primary hyperparathyroidism Time Spent with Patient Time attestation: Total time spent providing and/or coordinating discharge services: Time spent: Greater than 30 minutes EXAM Constitutional Vitals: Temp Pulse Resp BP Pulse Ox 96.4 F L 69 18 180/70 96 10/01/21 21:02 10/01/21 21:17 10/01/21 21:17 10/01/21 21:17 10/01/21 21:17 Discharge Data Data Completed and Pending Labs on day of discharge: Labs from last 24 hours 10/01/21 10/01/21 10/01/21 18:35 17:53 17:45 WBC RBC Hgb Hct POC Hct 43.0 MCV MCH MCHC RDW Plt Count MPV Immature Gran % (Auto) Neut % (Auto) Lymph % (Auto) Hodgeman % (Auto) Eos % (Auto) Baso % (Auto) Lymph # (Auto) Hodgeman # (Auto) Eos # (Auto) Baso # (Auto) Immature Gran # Absolute Neutrophils PT INR APTT POC Sodium 139 Sodium POC Potassium 4.0 Potassium POC Chloride 105 Chloride Carbon Dioxide POC Total CO2 24.0 Anion Gap POC BUN 14 BUN Creatinine POC Creatinine 0.9 GFR Calculation Glucose POC Glucose 102 Calcium POC WB Ioniz Calcium 1.47 H Total Bilirubin AST ALT Alkaline Phosphatase Troponin T Total Protein Albumin Globulin Albumin/Globulin Ratio Triglycerides 165 H Cholesterol 312 H LDL Cholesterol, Calc 175 H Non-HDL Cholesterol 207 H HDL Cholesterol 105 25-OH Vitamin D Total Vit D 1,25-Dihydroxy 1,25 Dihydroxy Vit D2 1,25 Dihydroxy Vit D3 PTH Intact Urine Color Colorless Urine Appearance Clear Urine pH 8.0 Ur Specific [place] 1.001 Urine Protein Negative Urine Glucose (UA) Negative Urine Ketones Negative Urine Occult Blood Negative Urine Nitrate Negative Urine Bilirubin Negative Urine Urobilinogen Negative Ur Leukocyte Esterase Negative Ur Culture Indicated? No 10/01/21 10/01/21 10/01/21 17:45 17:45 17:45 WBC RBC Hgb Hct POC Hct MCV MCH MCHC RDW Plt Count MPV Immature Gran % (Auto) Neut % (Auto) Lymph % (Auto) Hodgeman % (Auto) Eos % (Auto) Baso % (Auto) Lymph # (Auto) Hodgeman # (Auto) Eos # (Auto) Baso # (Auto) Immature Gran # Absolute Neutrophils PT INR APTT POC Sodium Sodium 136 POC Potassium Potassium 4.0 POC Chloride Chloride 101 Carbon Dioxide 23 POC Total CO2 Anion Gap 12.0 POC BUN BUN 11 Creatinine 0.8 POC Creatinine GFR Calculation 65 Glucose 102 POC Glucose Calcium 10.9 H POC WB Ioniz Calcium Total Bilirubin 0.5 AST 18 ALT 14 Alkaline Phosphatase 72 Troponin T < 0.01 Total Protein 6.8 Albumin 4.1 Globulin 2.7 Albumin/Globulin Ratio 1.5 Triglycerides Cholesterol LDL Cholesterol, Calc Non-HDL Cholesterol HDL Cholesterol 25-OH Vitamin D Total 99.51 Vit D 1,25-Dihydroxy Pending 1,25 Dihydroxy Vit D2 Pending 1,25 Dihydroxy Vit D3 Pending PTH Intact 80.4 H Urine Color Urine Appearance Urine pH Ur Specific [place] Urine Protein Urine Glucose (UA) Urine Ketones Urine Occult Blood Urine Nitrate Urine Bilirubin Urine Urobilinogen Ur Leukocyte Esterase Ur Culture Indicated? 10/01/21 10/01/21 17:45 17:45 WBC 6.6 RBC 4.58 Hgb 13.9 Hct 41.9 POC Hct MCV 91.5 MCH 30.3 MCHC 33.2 RDW 13.2 Plt Count 278 MPV 9.0 Immature Gran % (Auto) 0.3 Neut % (Auto) 52.0 Lymph % (Auto) 32.4 Hodgeman % (Auto) 10.4 Eos % (Auto) 4.1 Baso % (Auto) 0.8 Lymph # (Auto) 2.15 Hodgeman # (Auto) 0.69 Eos # (Auto) 0.27 Baso # (Auto) 0.05 Immature Gran # 0.02 Absolute Neutrophils 3.48 PT 12.9 INR 0.9 APTT 27.3 POC Sodium Sodium POC Potassium Potassium POC Chloride Chloride Carbon Dioxide POC Total CO2 Anion Gap POC BUN BUN Creatinine POC Creatinine GFR Calculation Glucose POC Glucose Calcium POC WB Ioniz Calcium Total Bilirubin AST ALT Alkaline Phosphatase Troponin T Total Protein Albumin Globulin Albumin/Globulin Ratio Triglycerides Cholesterol LDL Cholesterol, Calc Non-HDL Cholesterol HDL Cholesterol 25-OH Vitamin D Total Vit D 1,25-Dihydroxy 1,25 Dihydroxy Vit D2 1,25 Dihydroxy Vit D3 PTH Intact Urine Color Urine Appearance Urine pH Ur Specific [place] Urine Protein Urine Glucose (UA) Urine Ketones Urine Occult Blood Urine Nitrate Urine Bilirubin Urine Urobilinogen Ur Leukocyte Esterase Ur Culture Indicated? Discharge Plan Patient/Caregiver Discharge Instructions Activity: increase activity as tolerated Diet: Regular Diet Instructions: Atorvastatin (By mouth), Clopidogrel (By mouth), Transient Ischemic Attack (GEN), Hyperparathyroidism (GEN) Activity Restrictions/Additional Instructions: After 21 days of both aspirin and Plavix, stop aspirin and continue Plavix daily. Follow-up with your primary care physician for suspected primary hyperparathyroidism as scheduled. Your new prescriptions have been electronically sent to [facility]. Increase activity as tolerated, continue a regular diet. Her blood pressure twice daily and bring log to PCP. This discharge packet is provided to you to help keep you informed about your care. We want to ensure you get everything you need when you go home. You will also be receiving a call from us in a few days to follow up with you and see h ow you are doing since your discharge. This gives us a chance to listen to any concerns you maybe experiencing since you were discharged or any additional needs you may have, as well as providing us feedback on your care experience. We strive to always provide excellent care and thank you for your feedback and for choosing [facility]. Prescriptions: New atorvastatin 40 mg Tablet 80 mg PO HS Qty: 30 0RF clopidogrel 75 mg Tablet 75 mg PO DAILY Qty: 60 0RF aspirin 81 mg capsule 81 mg PO QDAY Qty: 21 0RF amlodipine [Norvasc] 2.5 mg tablet 2.5 mg PO QDAY Qty: 30 0RF Follow Up Plan Follow up with: Edelmira Martinez DO [Primary Care Provider] - 10/11/21 10:15 am Patient Disposition: Home, Self-Care Prognosis: Fair Rehab Potential: Fair Overall status at discharge: patient is progressing back to baseline Discharge Orders: Discharge Order (Routine); Ordered 10/02/21 Ordered By: Antolin Guerrero
[2021-10-01] MEDS: DOCUSATE SODIUM 100 MG CAPSULE PO SCH (22:19)
[2021-10-01] MEDS: 0.9 % SODIUM CHLORIDE 10 ML SYRINGE IV SCH (22:20)
[2021-10-02] MEDS: 0.9 % SODIUM CHLORIDE 10 ML SYRINGE IV SCH (05:57)
[2021-10-02 06:48] LABS: ALT/SGPT 9 U/L (<40); AST/SGOT 14 U/L (<32); Albumin 3.6 gm/dL (3.2-5.2); Albumin/Globulin Ratio 1.7 (1.0-2.3); Alkaline Phosphatase 60 U/L (39-117); Bilirubin,Direct < 0.2 mg/dL (0-0.3); Bilirubin,Total 0.8 mg/dL (0.1-1.0); Blood Urea Nitrogen 9 mg/dL (8-23); Calcium 9.9 mg/dL (8.6-10.4); Carbon Dioxide 23 mmol/L (22-30); Chloride 108 mmol/L (96-108); Globulin 2.1 gm/dL (2.2-3.7); Glomerular Filtration Rate 65; Glucose 89 mg/dL (70-105); Lactate Dehydrogenase 152 U/L (135-225); Phosphorous 2.3 mg/dL (2.5-4.5); Triglycerides 84 mg/dL (<150); Uric Acid 4.5 mg/dL (2.5-8.0)
--- NOTE | 2021-10-02 07:33 | Internal Med Progress Note ---
SUBJECTIVE Subjective Patient information: Note initiated : 10/02/21 at 7:29 am Service Date, if different from initiated Date: [] Patient: Juana Jackson a 89 y/o F admitted on 10/01/21 for stroke. Chief Complaint: [] Interval history: History of present illness: Ms. Jackson is a 89 year old F Presents the ED with confusion and slurred speech and word finding difficulty with onset at 1730. Patient has a history of TIA. Patient denied any extremity weakness or numbness headache or vision changes. In the ED her symptoms completely resolved and total duration of symptoms was 20 minutes. Blood pressure was elevated 195/125 in the ED. Patient says her blood pressure typically runs systolic of 125-140 at home and seems only run high during these episodes. Patient takes a baby aspirin and fish oil at home but no other medications. CT head showed no acute pathology, did show cerebral atrophy and small vessel ischemic changes. Case discussed with stroke neurologist Dr. Lr who recommended: She recommends over the next 21 days patient be started on a baby aspirin, Plavix 75 mg p.o. daily and Lipitor 80 mg p.o. daily. Patient also noted to be mildly hypercalcemic and she does admit to taking vitamin D supplement EKG in sinus 7/5 Overnight event or new complaints. Awaiting echocardiogram and carotid ultrasound and brain MRI. Review of Systems: denies headache/fever/chills/nausea/vomiting/chest or abdominal pain/cough/dyspnea/diarrhea. Otherwise see above. Constitutional Vitals: Vital Signs Temp Pulse Resp BP Pulse Ox 97.9 F 57 L 16 156/71 97 10/02/21 04:45 10/02/21 00:01 10/02/21 04:45 10/02/21 04:45 10/02/21 04:45 Period Temp Pulse Resp BP Sys/Tuttle Pulse Ox Last 24 Hr 96.4 F-97.9 F 57-99 - 140-195/65-121 91-99 Intake and Output 10/01/21 10/02/21 10/02/21 21:59 05:59 13:59 Output Total 800 Balance -800 Weight 60.555 kg 60.555 kg Intake & Output: Intake & Output 10/01/21 10/02/21 10/02/21 21:59 05:59 13:59 Output Total 800 Balance -800 Weight 60.555 kg 60.555 kg Output: Void Amount 800 Other: Urine Appearance Clear Urine Color Bright Yellow Exam: General: Alert, Awake, No acute Distress Eyes/N/T: EOMI, Head/Neck: neck supple, CV: Regular with occasional ectopic beat, No murmurs Pulm: Clear b/l, no wheezing/rhonchi/rales Abd: soft, nontender, +BS x4 Ext: no clubbing/cyanosis/edema Neuro: Alert, no focal deficits, moves all extremities, Skin: warm/dry OBJ DATA Labs CBC & Chem 7: 10/01/21 17:45 10/02/21 05:38 Labs: Abnormal Lab Results 10/02/21 10/01/21 10/01/21 05:38 17:53 17:45 Anion Gap 6.0 L Calcium POC WB Ioniz Calcium 1.47 H Phosphorus 2.3 L Total Protein 5.7 L Globulin 2.1 L Triglycerides 165 H Cholesterol 312 H LDL Cholesterol, Calc 175 H Non-HDL Cholesterol 207 H PTH Intact 10/01/21 10/01/21 17:45 17:45 Anion Gap Calcium 10.9 H POC WB Ioniz Calcium Phosphorus Total Protein Globulin Triglycerides Cholesterol LDL Cholesterol, Calc Non-HDL Cholesterol PTH Intact 80.4 H Meds: Medications Acetaminophen (Acetaminophen 325 Mg Tablet) 650 mg PO Q6HP PRN; Protocol PRN Reason: Per Pain Protocol/Fever > 101 Albuterol/Ipratropium (Ipratropium/Albuterol 3 Ml Ampul.Neb) 3 ml NEB Q4HP PRN PRN Reason: Shortness Of Breath Aspirin (Aspirin 81 Mg Tab.Chew) 81 mg PO DAILY [facility] Atorvastatin Calcium (Atorvastatin 40 Mg Tablet) 80 mg PO HS [facility] Clopidogrel Bisulfate (Clopidogrel 75 Mg Tablet) 75 mg PO DAILY [facility] Docusate Sodium (Docusate Sodium 100 Mg Capsule) 100 mg PO BID [facility] Last Admin: 10/01/21 22:19 Dose: Not Given Documented by: Enoxaparin Sodium (Enoxaparin 40 Mg/0.4 Ml Syringe) 40 mg SQ DAILY [facility] Potassium Chloride 40 meq/ (Dextrose) 520 mls @ 130 mls/hr IV UD PRN PRN Reason: Potassium < 3 Magnesium Sulfate (Magnesium Sulfate) 2 gm in 50 mls @ 50 mls/hr IV UD PRN PRN Reason: Magnesium </= 1.6 Labetalol HCl (Labetalol 5 Mg/Ml Ml) 0 mg IV Q2HP PRN PRN Reason: Hypertension Ondansetron HCl (Ondansetron 4 Mg/2 Ml Vial) 4 mg IV Q4HP PRN PRN Reason: Nausea And Vomiting Polyethylene Glycol (Polyethylene Glycol 3350 17 Gm Packet) 17 gm PO DAILYP PRN PRN Reason: Constipation Potassium Chloride (Potassium Chloride 20 Meq Tablet) 40 meq PO UD PRN PRN Reason: Potssium is 3-3.5 Potassium Chloride (Potassium Chloride 20 Meq Tablet) 40 meq PO UD PRN PRN Reason: Potassium < 3 Senna (Sennosides 1 Tablet) 2 tab PO DAILYP PRN PRN Reason: Constipation Sodium Chloride (0.9 % Sodium Chloride 10 Ml Syringe) 10 ml IV Q8 CHELLE Last Admin: 10/02/21 05:57 Dose: Not Given Documented by: A/P Narrative A/P Narrative: A: *TIA (slurring/expressive aphasia): -ABCD=4 *HTN: pt states normally it SBP runs 125-140 at home *HLD: *h/o ulcerative colitis with ileostomy: *Hypercalcemia 2/2 suha Hyperparathyroidism: elevated iPTH P: -per neurologist >over next 21 days pt to be on ASA 81mg, Plavix 75mg, Lipitor 80mg daily -since pt already on ASA, after 21-days will continue plavix and d/c ASA. -echo, carotid u/s pending, MRI brain -neurochecks -check iPTH and Vit D -hold home vit D supp -f/u with PCP or Endocrinology for hyerparathyroidism -ppx: lovenox Time Spent With Patient Time: Total time spent is greater than 50% in coordination of care (as documented) at patient's floor/unit and/or counseling patient: QUALITY Stroke Symptom Onset Unknown: No
[2021-10-02] MEDS: DOCUSATE SODIUM 100 MG CAPSULE PO SCH (07:55)
[2021-10-02] MEDS ORDERED: ENOXAPARIN 40 MG/0.4 ML SYRINGE SQ SCH (09:00)
[2021-10-02] MEDS ORDERED: CLOPIDOGREL 75 MG TABLET PO SCH (09:00)
[2021-10-02] MEDS ORDERED: ASPIRIN 81 MG TAB.CHEW PO SCH (09:00)
--- NOTE | 2021-10-02 09:10 | Ultrasound Report ---
INDICATION: tia COMPARISON: Brain CT scan dated 10/01/2021 TECHNIQUE: Carotid arteries were imaged in sagittal and transverse planes using 5 mHz linear probe: Doppler, color, and 2D. FINDINGS: Mild atherosclerotic plaque in the distal common carotid artery or proximal internal carotid artery bilaterally. Plaque is bilaterally symmetric. There is no evidence for ulceration. No significant stenosis. Maximum Systolic Flow Velocity: - Right common carotid artery: 61 cm/sec - Right internal carotid artery: 64 cm/sec - Left common carotid artery: 82 cm/sec - Left internal carotid artery: 57 cm/sec Vertebral arteries are antegrade patent bilaterally IMPRESSION: 1. Mild atherosclerotic plaque in the proximal internal carotid artery bilaterally. Plaque is bilaterally symmetric 2. No hemodynamically significant stenosis 3. No flow disturbance. No evidence for ulcerative plaque. Interpreted and Authenticated by: Vel Mejia 10/02/21
--- NOTE | 2021-10-02 12:28 | Magnetic Resonance Report ---
INDICATION: TIA/expressive aphasia TECHNIQUE: Limited MRI scan of the brain. COMPARISON: Previous CT scans dated 07/21/2020, 10/01/2021 FINDINGS: There is no restricted diffusion. No acute infarction. Atrophy. There is mild periventricular white matter abnormality consistent with small vessel ischemic change. No acute or focal intra-axial abnormality. No midline shift. Brainstem and cerebellum are negative. IMPRESSION: 1. No restricted diffusion. No acute infarction 2. Mild cerebral atrophy and white matter are noted as above. No acute abnormality Interpreted and Authenticated by: Vel Mejia 10/02/21
[2021-10-02] MEDS ORDERED: amLODIPine 5 MG TABLET PO ONE (12:52)
[2021-10-02] MEDS ORDERED: ATORVASTATIN 40 MG TABLET PO SCH (21:00)
[2021-10-06 12:41] LABS: Vit D 1,25 Dihydroxy 79 pg/mL (18-72)
--- NOTE | 2021-10-08 10:43 | EKG ---
[facility] Test Date: 2021-10-01 Pat Name: Juana Jackson Department: ED Room: Gender: Female [employer]: NED : 1930 Requested By: Yoel Flowers Order Number: [id number] Reading MD: Vel Carmona M.D. Measurements Intervals Rex Rate: 72 P: 70 GA: 147 QRS: 94 QRSD: 111 T: 30 QT: 379 QTc: 415 Interpretive Statements Sinus rhythm Right axis deviation Electronically Signed On 10-08-2021 10:43:00 PDT by Vel Carmona M.D. /store/[id number]
== END 2021-10-02 13:55 | disposition home or self-care (01) ==
LOC: ED 17:43 → ICU 17:43
PROVIDERS: ADMIT Internal Medicine; ATTEND Internal Medicine